=== PATIENT | female | born 1995 | race African-American/Black ===

== ENCOUNTER 2019-01-16 16:46 | Emergency (ER) | payer SELFPAY ==
[~2019-01-16] VITALS: Ht 152.4 cm; Wt 59.0 kg
--- NOTE | 2019-01-16 16:52 | NUR ---
ED Nurse Note: PT BROUGHT IN TO ER TODAY BY SHERIFF. [place]. PT IN CUSTODY. PT HERE FOR MEDICAL CLEARANCE. PT STATES SHE IS 8 MONTHS . VSS. PT STATES IS TAKING VITAMINS AND DENIES ANY CONTRACTIONS/ABDOMINAL PAIN.
[2019-01-16 16:54] VITALS: BP 112/72
--- NOTE | 2019-01-16 17:11 | Emergency Room Report ---
History of Present Illness General Chief Complaint: Medical Clearance Source: Patient Present Illness HPI 23 YO female presents to the ED for medical clearance for incarceration. Pt. reports that she is 8 months . just had appt with obgyn two days ago and everything was fine. Denies abdominal pain, denies cramping, vaginal d/ c or bleeding. Denies N/V/F/C. Denies open wounds or bleeding. Denies having any medical symptoms at this time. Denies CP, SOB, palpitations, or MONTOYA. Allergies: Coded Allergies: No Known Allergies (Unverified , 01/16/19) Patient History Past Medical History: see triage record Past Surgical History: none Pertinent Family History: none Last Menstrual Period: 05/2018 Now: Yes : 2 Para: 0 Reviewed Nursing Documentation: PMH: Agreed; PSxH: Agreed Nursing Documentation-PMH Past Medical History: No Stated History Review of Systems All Other Systems: negative except mentioned in HPI Physical Exam Vital Signs Date Time Temp Pulse Resp B/P (MAP) Pulse Ox O2 Delivery O2 Flow Rate FiO2 01/16/19 16:49 98.1 102 22 110/69 (83) 100 Room Air Sp02 EP Interpretation: reviewed, normal General Appearance: no apparent distress, alert, GCS 15, non-toxic Head: normocephalic, atraumatic Eyes: bilateral eye normal inspection, bilateral eye PERRL ENT: hearing grossly normal, normal voice Neck: full range of motion Respiratory: chest non-tender, lungs clear, normal breath sounds, speaking full sentences Cardiovascular #1: regular rate, rhythm, no edema Gastrointestinal: normal bowel sounds, non tender, soft Rectal: deferred Genitourinary: normal inspection Musculoskeletal: back normal, gait/station normal, normal range of motion, non- tender Neurologic: alert, oriented x3, responsive, motor strength/tone normal, sensory intact, speech normal, grossly normal Psychiatric: judgement/insight normal Lymphatic: no adenopathy Medical Decision Making PA Attestation Dr. Soriano is my supervising Physician whom patient management has been discussed with. Diagnostic Impression: Primary Impression: Medical clearance for incarceration ER Course 23 YO female presents to the ED for medical clearance for incarceration. Pt. reports that she is 8 months . just had appt with obgyn two days ago and everything was fine. Denies abdominal pain, denies cramping, vaginal d/ c or bleeding. Denies N/V/F/C. Denies open wounds or bleeding. Denies having any medical symptoms at this time. Denies CP, SOB, palpitations, or MONTOYA. Ddx considered but are not limited to Head Trauma, GA, ACS, SI/HI, URI, SAH, Fractures, Dislocations, Taser barbs, Abrasions, pre-term labor, threatened miscarriage, eclampsia just to name a few. Vital signs: are WNL, pt. is afebrile H&PE are most consistent with: normal limited physical examination. ORDERS: none required at this time, the diagnosis is clinical ED INTERVENTIONS: None required at this time. DISCHARGE: At this time pt. is stable for d/c to law enforcement. Will provide printed patient care instructions, and any necessary prescriptions. Care plan and follow up instructions have been discussed with the patient prior to discharge. Last Vital Signs Date Time Temp Pulse Resp B/P (MAP) Pulse Ox O2 Delivery O2 Flow Rate FiO2 01/16/19 16:54 96 20 Room Air 01/16/19 16:54 98.2 112/72 99 Disposition: D/C TO LAW ENFORCEMENT IN CUST Condition: Stable Departure Forms: [facility] Clearance Rosaline Gill Jan 16, 2019 17:11
--- NOTE | 2019-01-16 17:18 | NUR ---
ED Nurse Note: PT SITTING PEACEFULLY IN CHAIR IN NAD. AOX4. DISCHARGE PAPERWORK EXPLAINED TO PT. PT VERBALIZES UNDERSTANDING AND ALL QUESTIONS ANSWERED. DISCHARGE PAPERWORK GIVEN TO AND ID [id number] REMOVED FROM PT. PT WALKED OUT OF ER WITH STEADY GAIT AND ALL BELONGINGS ACCOMPANIED BY .
[2019-01-16 17:19] VITALS: BP 108/74
== END 2019-01-16 17:21 ==
LOC: EMR 17:10
DX: O26.93 Pregnancy related conditions, unspecified, third trimester (principal); Z3A.00 Weeks of gestation of pregnancy not specified
CPT/HCPCS: 99281